=== PATIENT | male | born 1985 | race Caucasian/White ===

== ENCOUNTER 2020-08-12 12:36 | Emergency (ER) | payer OTHER ==
[~2020-08-12 12:36] MED LIST: IBUPROFEN800 MG PO
[2020-08-12 14:25] LABS: HEMOGLOBIN 16.7 gm/dl (14.0-17.5); RED BLOOD COUNT 5.38 M/UL (4.20-5.50); WHITE BLOOD COUNT 13.5 K/UL (4.5-11.0)
[2020-08-12 14:42] LABS: BUN/CREATININE RATIO 23 (0-10)
== END 2020-08-12 18:30 | disposition home or self-care (01) ==
LOC: ER1 12:36
PROVIDERS: Family Medicine
DX: L02.215 Cutaneous abscess of perineum (principal); E11.9 Type 2 diabetes mellitus without complications; F17.200 Nicotine dependence, unspecified, uncomplicated; Z79.84 Long term (current) use of oral hypoglycemic drugs; Z87.2 Personal history of diseases of the skin and subcutaneous tissue; Z88.5 Allergy status to narcotic agent
CPT/HCPCS: 10060; 72193; 80053; 83605; 85025; 86140; 96365; 99284; J2543; J2704; Q9967

== ENCOUNTER 2021-05-23 16:08 | Emergency (ER) | payer OTHER ==
[2021-05-23 17:04] LABS: HEMOGLOBIN 17.7 gm/dl (14.0-17.5); RED BLOOD COUNT 5.57 M/UL (4.20-5.50); WHITE BLOOD COUNT 7.1 K/UL (4.5-11.0)
[2021-05-23 17:19] LABS: BUN/CREATININE RATIO 19 (0-10)
[2021-05-27] MEDS ORDERED: AUGMENTIN 875-1 EACH PO (10:53)
[2021-05-27] MEDS ORDERED: BENTYL 10MG CAP10 MG PO (10:53)
[2021-05-27] MEDS ORDERED: ZOFRAN ODT 4 MG4 MG PO (10:55)
== END 2021-05-23 20:35 | disposition home or self-care (01) ==
LOC: ER1 16:08
PROVIDERS: Emergency Medicine
DX: U07.1 COVID-19 (principal); Z23 Encounter for immunization; E11.9 Type 2 diabetes mellitus without complications; E78.5 Hyperlipidemia, unspecified
CPT/HCPCS: 71045; 80053; 82550; 82553; 83874; 84484; 85025; 99284; J7030; M0243; U0002

== ENCOUNTER 2021-05-26 12:38 | Inpatient (IN) | payer OTHER ==
[~2021-05-26] VITALS: Ht 172.7 cm; Wt 129.3 kg
[2021-05-26 13:15] LABS: HEMOGLOBIN 18.7 gm/dl (14.0-17.5); RED BLOOD COUNT 6.02 M/UL (4.20-5.50)
[2021-05-26 13:23] LABS: WHITE BLOOD COUNT 12.7 K/UL (4.5-11.0)
[2021-05-26 13:54] LABS: BUN/CREATININE RATIO 22 (0-10)
[2021-05-26] MEDS ORDERED: PRAVASTATIN SOD10 MG PO (18:18)
[2021-05-26] MEDS ORDERED: GABAPENTIN300 MG PO (18:18)
[2021-05-26] MEDS ORDERED: LEVOTHYROXINE50 MCG PO (18:19)
[2021-05-26] MEDS ORDERED: METFORMIN HCL1000 MG PO (18:20)
[2021-05-26] MEDS ORDERED: VITAMIN D21250 MCG PO (18:20)
[2021-05-26] MEDS ORDERED: STEGLATRO15 MG PO (18:20)
[2021-05-26 20:36] LABS: BUN/CREATININE RATIO 18 (0-10)
[2021-05-27 07:12] LABS: HEMOGLOBIN 17.5 gm/dl (14.0-17.5); RED BLOOD COUNT 5.62 M/UL (4.20-5.50)
[2021-05-27 07:18] LABS: WHITE BLOOD COUNT 8.4 K/UL (4.5-11.0)
[2021-05-27 07:46] LABS: BUN/CREATININE RATIO 18 (0-10)
[2021-05-27] MEDS ORDERED: BENTYL 10MG CAP10 MG PO (10:53)
[2021-05-27] MEDS ORDERED: AUGMENTIN 875-1 EACH PO (10:53)
[2021-05-27] MEDS ORDERED: ZOFRAN ODT 4 MG4 MG PO (10:55)
[2021-05-27 11:13] LABS: ADENOVIRUS F 40/41 Not Detected (Negative); ASTROVIRUS Not Detected (Negative); CAMPYLOBACTER Not Detected (Negative); CLOSTRIDIUM DIFFICILE TOX A/B Not Detected (Negative); CRYPTOSPORIDIUM Not Detected (Negative); E.COLI 0157 Not Detected (Negative); ENTAMOEBA HISTOLYTICA Not Detected (Negative); ENTEROAGGREGATIVE E.COLI (EAEC Not Detected (Negative); ENTEROPATHOGENIC E.COLI (EPEC) Not Detected (Negative); ENTEROTOXIGENIC E.COLI (ETEC) Not Detected (Negative); GIARDIA LAMBLIA Not Detected (Negative); NOROVIRUS GI/GII Not Detected (Negative); PLESIOMONAS SHIGELLOIDES Not Detected (Negative); ROTOVIRUS A Not Detected (Negative); SALMONELLA Not Detected (Negative); SAPOVIRUS Not Detected (Negative); SHIG/ENTEROINVAS.ECOLI (EIEC) Not Detected (Negative); SHIGA-LIK TOX.PRO.E.COLI (STEC Not Detected (Negative); VIBRIO Not Detected (Negative); VIBRIO CHOLERAE Not Detected (Negative); YERSINIA ENTEROCOLITICA Not Detected (Negative)
== END 2021-05-27 12:44 | disposition home or self-care (01) | DRG 177 ==
LOC: ER1 12:38 → CDU 16:11 → MED SURG 4 17:55
PROVIDERS: Emergency Medicine; ADMIT Internal Medicine
DX: U07.1 COVID-19 (principal); J12.82 Pneumonia due to coronavirus disease 2019; E87.2 Acidosis; A08.39 Other viral enteritis; Z68.41 Body mass index [BMI] 40.0-44.9, adult; E66.01 Morbid (severe) obesity due to excess calories; E11.9 Type 2 diabetes mellitus without complications; I10 Essential (primary) hypertension; E78.5 Hyperlipidemia, unspecified; F17.210 Nicotine dependence, cigarettes, uncomplicated; E86.0 Dehydration; Z96.698 Presence of other orthopedic joint implants; Z79.4 Long term (current) use of insulin; Z90.49 Acquired absence of other specified parts of digestive tract
CPT/HCPCS: 36415; 71045; 80048; 80053; 80307; 81001; 82009; 82436; 82550; 82553; 82570; 82728; 82962; 83036; 83605; 83690; 83874; 84133; 84300; 84439; 84443; 84484; 85025; 86140; 87040; 87507; 96374; 96375; 99285; C9113; J0696; J1650; J2270; J2405; J7030; J7070; Q9967; U0002

== ENCOUNTER 2022-03-11 13:08 | Emergency (ER) | payer OTHER ==
[~2022-03-11 13:08] MED LIST changes: +AUGMENTIN 875-1 EACH PO; +BENTYL 10MG CAP10 MG PO; +GABAPENTIN300 MG PO; +LEVOTHYROXINE50 MCG PO; +METFORMIN HCL1000 MG PO; +PRAVASTATIN SOD10 MG PO; +STEGLATRO15 MG PO; +VITAMIN D21250 MCG PO; +ZOFRAN ODT 4 MG4 MG PO
== END 2022-03-11 15:33 | disposition left against medical advice (07) ==
LOC: ER1 13:08
DX: Z53.21 Procedure and treatment not carried out due to patient leaving prior to being seen by health care provider (principal)

== ENCOUNTER 2022-03-15 12:25 | Inpatient (IN) | payer OTHER ==
[~2022-03-15] VITALS: Ht 172.7 cm; Wt 117.9 kg
[~2022-03-15 12:25] MED LIST changes: -GABAPENTIN300 MG PO; +GABAPENTIN600 MG PO; -PRAVASTATIN SOD10 MG PO; +PRAVASTATIN SOD20 MG PO
[2022-03-15 13:27] LABS: HEMOGLOBIN 17.6 gm/dl (14.0-17.5); RED BLOOD COUNT 5.67 M/UL (4.20-5.50); WHITE BLOOD COUNT 12.9 K/UL (4.5-11.0)
[2022-03-15 13:48] LABS: BUN/CREATININE RATIO 15 (0-10)
[2022-03-16 05:59] LABS: HEMOGLOBIN 17.2 gm/dl (14.0-17.5); RED BLOOD COUNT 5.7 M/UL (4.20-5.50); WHITE BLOOD COUNT 11.5 K/UL (4.5-11.0)
[2022-03-16 06:32] LABS: BUN/CREATININE RATIO 13 (0-10)
[2022-03-16] MEDS ORDERED: IBUPROFEN600 MG PO (10:14)
[2022-03-16] MEDS ORDERED: BACTRIM DS TAB1 EACH PO (10:14)
[2022-03-17 04:38] LABS: HEMOGLOBIN 15.2 gm/dl (14.0-17.5); RED BLOOD COUNT 4.89 M/UL (4.20-5.50); WHITE BLOOD COUNT 14.5 K/UL (4.5-11.0)
[2022-03-17 05:44] LABS: BUN/CREATININE RATIO 31 (0-10)
[2022-03-18 06:25] LABS: HEMOGLOBIN 14.3 gm/dl (14.0-17.5); RED BLOOD COUNT 4.68 M/UL (4.20-5.50)
[2022-03-18 06:36] LABS: WHITE BLOOD COUNT 10.8 K/UL (4.5-11.0)
[2022-03-18 06:58] LABS: BUN/CREATININE RATIO 43 (0-10)
[2022-03-19 06:05] LABS: HEMOGLOBIN 15.5 gm/dl (14.0-17.5); RED BLOOD COUNT 5.03 M/UL (4.20-5.50); WHITE BLOOD COUNT 9.9 K/UL (4.5-11.0)
[2022-03-19 06:58] LABS: BUN/CREATININE RATIO 37 (0-10)
[2022-03-19] MEDS ORDERED: MYCOSTATIN100000 UTS PO (11:41)
[2022-03-19] MEDS ORDERED: ACETAMINOPHEN-1 EAC1 PO (11:41)
== END 2022-03-19 11:45 | disposition home or self-care (01) | DRG 603 ==
LOC: ER1 12:25 → MED SURG 4 14:39 → CDU 14:39 → MED SURG 4 14:39
PROVIDERS: Physician Assistant; Surgery; ADMIT Internal Medicine
PROC: 0J9M0ZZ Drainage of Left Upper Leg Subcutaneous Tissue and Fascia, Open Approach (ICD-10-PCS; principal; 2022-03-16 09:40)
DX: L02.416 Cutaneous abscess of left lower limb (principal); L02.31 Cutaneous abscess of buttock; Z20.822 Contact with and (suspected) exposure to COVID-19; L03.116 Cellulitis of left lower limb; E11.9 Type 2 diabetes mellitus without complications; E78.5 Hyperlipidemia, unspecified; D72.829 Elevated white blood cell count, unspecified; Z96.698 Presence of other orthopedic joint implants; F12.10 Cannabis abuse, uncomplicated; E66.9 Obesity, unspecified; E03.9 Hypothyroidism, unspecified; B19.20 Unspecified viral hepatitis C without hepatic coma; F17.210 Nicotine dependence, cigarettes, uncomplicated; Z86.14 Personal history of Methicillin resistant Staphylococcus aureus infection; Z90.49 Acquired absence of other specified parts of digestive tract; Z88.8 Allergy status to other drugs, medicaments and biological substances; Z88.6 Allergy status to analgesic agent; Z83.3 Family history of diabetes mellitus; Z79.4 Long term (current) use of insulin
CPT/HCPCS: 36415; 80048; 80053; 80202; 82962; 83036; 83605; 85025; 87040; 87070; 87205; 96365; 96366; 96368; 96375; 96376; 99284; G0378; J0696; J1100; J1885; J2001; J2250; J2405; J2543; J2704; J3010; J3370; J7070